=== PATIENT | female | born 1990 | race Caucasian/White ===

== ENCOUNTER 2018-06-27 11:22 | Emergency (ER) | payer MEDICAID ==
[~2018-06-27] VITALS: Ht 162.6 cm; Wt 101.2 kg
[2018-06-27 11:29] VITALS: BP 131/72
--- NOTE | 2018-06-27 11:33 | NUR ---
URINE CUP HANDED TO PT FOR SAMPLE
--- NOTE | 2018-06-27 11:37 | NUR ---
pt ambulated to er bed 12
--- NOTE | 2018-06-27 11:43 | NUR ---
PATIENT PRESENTS TO ED WITH C/O VAGINAL BLEEING, SPOTTING WITH LOWER ABDOMINAL SORENESS X 2 DAYS, DENIES INJURY,DENIES DYSURIA, G 1 P 0 APPROX 11 WKS IUP,POSSIBLE LMP 04/02/2018, SEEN BY [facility] TODAY ; TOLD NO FETUS SEEN OR HEART BEAT . AAOX4 WITH EVEN AND STEADY GAIT; LUNGS CLEAR BL; HR EVEN AND REGULAR; PT DENIES ANY FEVER, CP, SOB, OR COUGH AT THIS TIME; DENIES N/V/D; SKIN IS PINK/WARM/DRY; PATIENT STATES PAIN OF 6/10 AT THIS TIME; VSS; PATIENT POSITIONED FOR COMFORT; HOB ELEVATED; BEDRAILS UP X2; BED DOWN. ER MD MADE AWARE OF PT STATUS.
--- NOTE | 2018-06-27 11:44 | NUR ---
L&D NURSES AT BEDSIDE
[2018-06-27 12:14] LABS: APPEARANCE,URINE CLEAR (CLEAR); BILIRUBIN,URINE NEGATIVE (NEGATIVE); BLOOD, URINE 2+ (NEGATIVE); COLOR,URINE YELLOW (YELLOW); LEUKOCYTE ESTERASE ,URINE NEGATIVE (NEGATIVE); NITRITE, URINE NEGATIVE (NEGATIVE); UGLUCOSE NEGATIVE (NEGATIVE)
[2018-06-27 12:15] LABS: BASOPHILS % (AUTO) 0.7 % (0.0-2.0); EOSINOPHILS # (AUTO) 0.1 K/uL (0-0.4); EOSINOPHILS % (AUTO) 2.5 % (0.0-4.0); HEMOGLOBIN 13.3 g/dL (12.0-16.0); LYMPHOCYTES # (AUTO) 1.7 K/uL (2.5-16.5); LYMPHOCYTES % (AUTO) 29.3 % (20.5-51.1); MEAN CORPUSCULAR HEMOGLOBIN 27 pg (27-31); MEAN CORPUSCULAR HGB CONC 33 g/dL (33-37); MEAN CORPUSCULAR VOLUME 82.1 fL (80-94); MONOCYTES # (AUTO) 0.3 K/uL (0.8-1.0); MONOCYTES % (AUTO) 5.7 % (1.7-9.3); NEUTROPHILS # (AUTO) 3.5 K/uL (1.8-7.7); NEUTROPHILS % (AUTO) 61.8 % (42.2-75.2); PLATELET COUNT (AUTO) 321 K/uL (140-450); RED BLOOD CELL COUNT(AUTO) 4.87 MIL/uL (4.20-5.40); RED CELL DISTRIBUTION WIDTH 16.2 % (11.6-13.7); WHITE BLOOD COUNT (AUTO) 5.7 K/uL (4.8-10.8)
[2018-06-27 12:34] LABS: WBC,URINE 0-5 /HPF (0-5)
--- NOTE | 2018-06-27 13:20 | NUR ---
PAPER US RESULTS GIVEN TO DR. CALDERON
[2018-06-27 14:01] VITALS: BP 128/70
--- NOTE | 2018-06-27 14:01 | NUR ---
Patient discharged with v/s stable. Written and verbal after care instructions given and explained. Patient verbalized understanding. Ambulatory with steady gait. All questions addressed prior to discharge. Advised to follow up with PMD.
== END 2018-06-27 14:01 | disposition home or self-care (01) ==
LOC: MED 11:22
DX: O03.9 Complete or unspecified spontaneous abortion without complication (principal)
CPT/HCPCS: 36415; 76801; 81001; 84702; 85025; 99284; Q0092